=== PATIENT | female | born 1995 | race American Indian/Alaskan Native ===

== ENCOUNTER 2021-04-14 05:30 | Emergency (ER) | payer MEDICAID, OTHER ==
[2021-04-14 05:53] VITALS: BP 133/79
[2021-04-14] MEDS ORDERED: LIDOCAINE (1%) 10 MG/1 ML VIAL 20 ML MDV INFILTRATI ONE (06:00)
[2021-04-14] MEDS ORDERED: IBUPROFEN 600 MG TAB PO ONE (06:00)
[2021-04-14] MEDS ORDERED: TETANUS,DIPH,PERTUSS(ACELL) VACCINE 0.5 ML SYRINGE IM ONE (06:31)
--- NOTE | 2021-04-14 06:36 | Emergency Department Report ---
Upper Extremity - HPI Chief Complaint: Laceration/Recheck/Suture Stated Complaint: DEEP LACERATION ON LEFT FOREARM Upper Extremity: Left Forearm (Medial left forearm laceration) Occurred When: Today (3 hours ago) Mechanism: Other (left forearm laceration by a wired fence) Severity: severe Symptoms: Yes Pain with Movement, Yes Laceration or Abrasion (Medial left forearm laceration), No Deformity, No Limited Range of Movement, No Numbness, No Weakness, No Swelling, No Bruising/Ecchymosis Other History: Patient is a nulliparous 25-year-old -[place] female with no past medical history presents to the ED with complaint of acute onset persistent painful bleeding medial left forearm laceration after she was scraped by a wire fence about 3 hours ago. 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 Patient states that she is not up-to-date with all her tetanus vaccinations. Patient denies numbness and tingling or weakness of left forearm, physical assault, dizziness, syncope, nausea, vomiting, loss of consciousness, fall, headache or neck pain. ED Review of Systems ROS: Stated complaint: DEEP LACERATION ON LEFT FOREARM Other details as noted in HPI Constitutional: denies: chills, fever Eyes: denies: eye pain, eye discharge, vision change ENT: denies: ear pain, throat pain Respiratory: denies: cough, shortness of breath, wheezing Cardiovascular: denies: chest pain, palpitations Endocrine: no symptoms reported Gastrointestinal: denies: abdominal pain, nausea, diarrhea Genitourinary: denies: urgency, dysuria, discharge Musculoskeletal: arthralgia (Left forearm pain due to a bleeding laceration wound). denies: back pain, joint swelling Skin: other (Bleeding left forearm laceration wound). denies: rash, lesions Neurological: denies: headache, weakness, paresthesias Psychiatric: denies: anxiety, depression Hematological/Lymphatic: denies: easy bleeding, easy bruising ED Past Medical Hx - Social History Smoking Status: Current Every Day Smoker Substance Use Type: None - Medications Home Medications: Home Medications Medication Instructions Recorded Confirmed Last Taken Type Acetamin/Codeine 120-12Mg/5 ml 10 ml PO Q8H PRN #120 ml 11/08/14 Unknown Rx [Tylenol/Codeine 120-12 mg/5 ml] Amoxicillin [Amoxicillin 400 mg/5 500 mg PO Q12H #125 bottle 11/08/14 Unknown Rx ml] Ibuprofen [Motrin] 600 mg PO Q8H PRN #30 tablet 04/14/21 Unknown Rx cephALEXin [Keflex] 500 mg PO Q8HR #30 cap 04/14/21 Unknown Rx Upper Extremity Exam - Exam General: Vital signs noted. No distress. Alert and acting appropriately. Head and Torso: No HEENT Abnormality, No Neck Tenderness, No Chest/Lungs Ab normality, No Abdominal Tenderness, No Back Tenderness Shoulder Exam: Yes Normal Range of Motion in Shoulder, No Shoulder Tenderness, No Clavicle Tenderness, No Shoulder Deformity, No AC Joint Tenderness Arm Exam: No Arm/Humerus Tenderness, No Arm Deformity Elbow: Yes Normal Range of Motion in Elbow, No Elbow Tenderness, No Elbow Deformity Forearm: Yes Forearm Tenderness (Localized medial left forearm laceration wound), No Forearm Deformity, No Pain with Pronation, No Pain with Supination Wrist: Yes Normal ROM in Wrist, No Wrist Tenderness, No Wrist Deformity, No Snuffbox Tenderness, No Pain with Axial Thumb Compression Hand: Yes Normal ROM in Digit(s), No Hand Tenderness, No Hand Deformity, No Digit Tenderness, No Digit(s) Deformity, No Tendon Dysfunction CMS Exam: Yes Broken Skin (Medial left forearm laceration wound), Yes Normal Distal Pulses, Yes Normal Capillary Refill, Yes Normal Distal Sensation ED Course Vital Signs 04/14/21 05:48 Temperature 97.9 F Pulse Rate 96 H Respiratory 18 Rate Blood Pressure 133/79 O2 Sat by Pulse 99 Oximetry - Laceration /Wound Repair Left Medial Arm Wound Location: upper extremity (Left medial forearm laceration) Wound Length (cm): 7 Wound's Depth, Shape: linear Wound Explored: contaminated Irrigated w/ Saline (ccs): 300 Betadine Prep?: Yes Anesthesia: 1% Lidocaine Volume Anesthetic (ccs): 7 Wound Debrided: extensive Wound Repaired With: sutures Suture Size/Type: 3:0, proline Number of Sutures: 16 Layer Closure?: No Sterile Dressing Applied?: Yes Progress: The area was cleaned thoroughly with normal saline and 1% lidocaine solution infiltrated around the wound for local anesthesia. When anesthesia was fully achieved, the wound was sutured per protocol with Prolene 3-0 sutures. Patient tolerated the procedure well. The wound was then dressed appropriately and the patient was discharged home on pain medications and prophylactic antibiotics. ED Medical Decision Making - Medical Decision Making This is a nulliparous 25-year-old -[place] female with no past medical history presents to the ED with complaint of acute onset persistent painful bleeding medial left forearm laceration after she was scraped by a wire fence about 3 hours ago. 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 Patient states that she is not up-to-date with all her tetanus vaccinations. In the ED, patient is alert and oriented x3 and is not in any distress. Patient was treated for pain in the ED and also received booster tetanus vaccinations.The area was cleaned thoroughly with normal saline and 1% lidocaine solution infiltrated around the wound for local anesthesia. When anesthesia was fully achieved, the wound was sutured per protocol with Prolene 3-0 sutures. Patient tolerated the procedure well. The wound was then dressed appropriately and the patient was discharged home on pain medications and prophylactic antibiotics. On reevaluation, patient's left forearm and wrist as well as hand was neurovascularly intact. Patient was therefore advised return to the ED immediately if symptoms get worse, otherwise follow-up with her primary care physician in 7 to 10 days for reevaluation. Patient was also advised return to the ED or to her primary care physician in 12 to 14 days for suture removal. - Differential Diagnosis Forearm laceration; forearm puncture wound; forearm abrasion wound Critical care attestation.: If time is entered above; I have spent that time in minutes in the direct care of this critically ill patient, excluding procedure time. ED Disposition Clinical Impression: Laceration of left forearm without foreign body Qualifiers: Encounter type: initial encounter Qualified Code(s): S51.812A - Laceration without foreign body of left forearm, initial encounter Puncture wound of left forearm without foreign body Qualifiers: Encounter type: initial encounter Qualified Code(s): S51.832A - Puncture wound without foreign body of left forearm, initial encounter Disposition: DC- TO HOME OR SELFCARE Is pt being admited?: No Does the pt Need Aspirin: No Condition: Stable Instructions: Laceration Care, Adult, [id number], Puncture Wound, [id number] Additional Instructions: Take medication with food, drink plenty of fluids and follow-up with your primary care physician in 7 to 10 days for reevaluation. No alcohol consumption advised when taking these medications. Return to the ED immediately if your symptoms get worse, otherwise return to the ED or to your primary care physician in 12 to 14 days for suture removal. Prescriptions: cephALEXin [Keflex] 500 mg PO Q8HR #30 cap Ibuprofen [Motrin] 600 mg PO Q8H PRN #30 tablet PRN Reason: Pain Referrals: [facility] [Provider Group] - 7-10 days Time of Disposition: 06:39 Print Language: DANISH
== END 2021-04-14 08:21 | disposition home or self-care (01) ==
LOC: ED 05:30
DX: S51.812A Laceration without foreign body of left forearm, initial encounter (principal); F17.200 Nicotine dependence, unspecified, uncomplicated; Z79.899 Other long term (current) drug therapy; W26.8XXA Contact with other sharp object(s), not elsewhere classified, initial encounter; Y93.89 Activity, other specified; Y92.89 Other specified places as the place of occurrence of the external cause; Y99.8 Other external cause status
CPT/HCPCS: 99281

== ENCOUNTER 2021-04-18 00:22 | Emergency (ER) | payer OTHER ==
[2021-04-18 03:03] VITALS: BP 134/86
--- NOTE | 2021-04-18 04:49 | Emergency Department Report ---
ED General Adult HPI - General Chief complaint: Extremity Injury, Upper Stated complaint: FOLLOW UP/PAIN IN LT ARM/STITCHES Source: patient Mode of arrival: Ambulatory Limitations: No Limitations - History of Present Illness Initial comments: Patient is a nulliparous 25-year-old -[place] female with no past medical history presents to the ED with complaint of left forearm pain for 2 hours. Patient states that she is 4 days s/p left forearm laceration repair and is currently on Keflex and ibuprofen as needed for pain. Patient states that the ibuprofen has not helped her pain and that the pain is worse when she performs any active range of motion of the left forearm. Patient states that prior to arrival in the ED she started shaking uncontrollably on upper and lower extremities and panics and wanted to be evaluated. Patient denies fever, nausea, vomiting, dizziness, syncope, numbness and tingling or weakness of left forearm, change in vision, fall, back pain or headache. MD Complaint: left forearm pain s/p recent left forearm laceration repair -: Sudden, hour(s) (2) Location: upper extremity (left forearm) Radiation: non-radiation Severity scale (0 -10): 4 Quality: aching, sharp Consistency: constant Improves with: none Worsens with: movement Associated Symptoms: denies other symptoms. denies: confusion, chest pain, cough, diaphoresis, fever/chills, headaches, malaise, nausea/vomiting, rash, seizure, shortness of breath, syncope, weakness Treatments Prior to Arrival: none - Related Data Previous Rx's Medication Instructions Recorded Last Taken Type Acetamin/Codeine 120-12Mg/5 ml 10 ml PO Q8H PRN #120 ml 11/08/14 Unknown Rx [Tylenol/Codeine 120-12 mg/5 ml] Amoxicillin [Amoxicillin 400 mg/5 500 mg PO Q12H #125 bottle 11/08/14 Unknown Rx ml] Ibuprofen [Motrin] 600 mg PO Q8H PRN #30 tablet 04/14/21 Unknown Rx cephALEXin [Keflex] 500 mg PO Q8HR #30 cap 04/14/21 Unknown Rx Acetaminophen/Codeine [Tylenol 1 tab PO Q6H PRN #10 tab 04/18/21 Unknown Rx /Codeine # 3 tab] Allergies Allergy/AdvReac Type Severity Reaction Status Date / Time No Known Allergies Allergy Verified 11/08/14 20:48 ED Review of Systems ROS: Stated complaint: FOLLOW UP/PAIN IN LT ARM/STITCHES Other details as noted in HPI Constitutional: denies: chills, fever Eyes: denies: eye pain, eye discharge, vision change ENT: denies: ear pain, throat pain Respiratory: denies: cough, shortness of breath, wheezing Cardiovascular: denies: chest pain, palpitations Endocrine: no symptoms reported Gastrointestinal: denies: abdominal pain, nausea, diarrhea Genitourinary: denies: urgency, dysuria, discharge Musculoskeletal: arthralgia (Left forearm pain due to sutured left forearm laceration wound). denies: back pain, joint swelling Skin: other (Closed, sutured left forearm laceration with mild localized pain). denies: rash, lesions Neurological: denies: headache, weakness, paresthesias Psychiatric: denies: anxiety, depression Hematological/Lymphatic: denies: easy bleeding, easy bruising ED Past Medical Hx - Past Medical History Previous Medical History?: No - Surgical History Past Surgical History?: No - Social History Smoking Status: Never Smoker Substance Use Type: None - Medications Home Medications: Home Medications Medication Instructions Recorded Confirmed Last Taken Type Acetamin/Codeine 120-12Mg/5 ml 10 ml PO Q8H PRN #120 ml 11/08/14 Unknown Rx [Tylenol/Codeine 120-12 mg/5 ml] Amoxicillin [Amoxicillin 400 mg/5 500 mg PO Q12H #125 bottle 11/08/14 Unknown Rx ml] Ibuprofen [Motrin] 600 mg PO Q8H PRN #30 tablet 04/14/21 Unknown Rx cephALEXin [Keflex] 500 mg PO Q8HR #30 cap 04/14/21 Unknown Rx Acetaminophen/Codeine [Tylenol 1 tab PO Q6H PRN #10 tab 04/18/21 Unknown Rx /Codeine # 3 tab] ED Physical Exam - General Limitations: No Limitations General appearance: alert, in no apparent distress - Head Head exam: Present: atraumatic, normocephalic, normal inspection - Eye Eye exam: Present: normal appearance, PERRL, EOMI Pupils: Present: normal accommodation - ENT ENT exam: Present: normal exam, normal orophraynx, mucous membranes moist, TM's normal bilaterally, normal external ear exam - Neck Neck exam: Present: normal inspection, full ROM - Respiratory Respiratory exam: Present: normal lung sounds bilaterally. Absent: respiratory distress, wheezes, rales, rhonchi, chest wall tenderness, accessory muscle use, decreased breath sounds - Cardiovascular Cardiovascular Exam: Present: regular rate, normal rhythm, normal heart sounds. Absent: systolic murmur, diastolic murmur, rubs, gallop - GI/Abdominal GI/Abdominal exam: Present: soft, normal bowel sounds. Absent: tenderness, guarding, rebound, hyperactive bowel sounds, hypoactive bowel sounds, organomegaly - Extremities Exam Extremities exam: Present: normal inspection, full ROM, tenderness (Palpable mild left forearm localized tenderness around a sutured laceration wound left forearm), normal capillary refill. Absent: pedal edema, joint swelling, calf tenderness - Back Exam Back exam: Present: normal inspection, full ROM. Absent: tenderness, CVA tenderness (R), CVA tenderness (L), muscle spasm, paraspinal tenderness, vertebral tenderness - Neurological Exam Neurological exam: Present: alert, oriented X3, CN II-XII intact, normal gait, reflexes normal - Psychiatric Psychiatric exam: Present: normal affect, normal mood - Skin Skin exam: Present: warm, dry, intact, normal color, other (Sutured left forearm laceration wound with mild localized tenderness; no erythema, purulent discharge or swelling). Absent: rash ED Course Vital Signs 04/18/21 02:57 Temperature 98.8 F Pulse Rate 79 Respiratory 18 Rate Blood Pressure 134/86 O2 Sat by Pulse 99 Oximetry ED Medical Decision Making - Medical Decision Making This is a nulliparous 25-year-old -[place] female with no past medical history presents to the ED with complaint of left forearm pain for 2 hours. Patient states that she is 4 days s/p left forearm laceration repair and is currently on Keflex and ibuprofen as needed for pain. Patient states that the ibuprofen has not helped her pain and that the pain is worse when she performs any active range of motion of the left forearm. Patient states that prior to arrival in the ED she started shaking uncontrollably on upper and lower ext remities and panics and wanted to be evaluated. In the ED, patient is alert and oriented x3 and is not in distress. Physical examination is unremarkable except for mild localized left forearm tenderness around a recently sutured left forearm laceration wound with no sign of infection. Patient is currently on prophylactic antibiotics and pain medication as needed. Patient was therefore discharged home and advised to continue taking the previously prescribed antibiotics and pain medication as needed and follow-up with her primary care physician in 7 to 10 days for reevaluation. Patient was advised return to the ED or her primary care physician as previously advised for suture removal. - Differential Diagnosis Forearm laceration; forearm puncture wound; cellulitis of forearm Critical care attestation.: If time is entered above; I have spent that time in minutes in the direct care of this critically ill patient, excluding procedure time. ED Disposition Clinical Impression: Pain in left forearm Laceration of left forearm Qualifiers: Encounter type: subsequent encounter Qualified Code(s): S51.812D - Laceration without foreign body of left forearm, subsequent encounter Disposition: TO HOME OR SELFCARE Is pt being admited?: No Does the pt Need Aspirin: No Condition: Stable Instructions: Laceration Care, Adult, [id number], Sutured Wound Care, [id number] Additional Instructions: Continue taking the previously prescribed antibiotics and pain medications until finished, follow-up with your primary care physician as previously advised or return to the ED immediately if symptoms get worse. Otherwise return to the ED or to your primary care physician for suture removal as previously advised. Prescriptions: Acetaminophen/Codeine [Tylenol /Codeine # 3 tab] 1 tab PO Q6H PRN #10 tab PRN Reason: severe pain Referrals: [facility] [Provider Group] - 7-10 days Time of Disposition: 04:52 Print Language: [place]IZ[place]
== END 2021-04-18 06:03 | disposition home or self-care (01) ==
LOC: ED 00:22
DX: S51.812D Laceration without foreign body of left forearm, subsequent encounter (principal); Z79.899 Other long term (current) drug therapy; X58.XXXD Exposure to other specified factors, subsequent encounter
CPT/HCPCS: 99282